=== PATIENT | male | born 1955 | race Caucasian/White ===

== ENCOUNTER 2016-06-01 07:44 | Day surgery (SDC) | payer OTHER ==
[~2016-06-01] VITALS: Ht 165.1 cm; Wt 79.2 kg
[2016-06-01 08:21] VITALS: Ht 165.1 cm; Wt 79.2 kg
[2016-06-01] MEDS ORDERED: [UNRECOGNIZED DRUG - OTHER] (08:26)
[2016-06-01 08:42] VITALS: BP 153/85; PULSE 66; RESP 20
[2016-06-01] MEDS ORDERED: MIDAZOLAM 1 MG/ML 2 ML INJ ONE ×2 (09:02)
[2016-06-01] MEDS ORDERED: FENTAnyl 50 MCG/ML VIAL ONE (09:02)
[2016-06-01 09:35] VITALS: BP 115/78; PULSE 53; RESP 18
--- NOTE | 2016-06-01 10:57 | GILP ---
DATE OF PROCEDURE: PROCEDURE: Colonoscopy. PREOPERATIVE DIAGNOSIS: Screening colonoscopy, a history of diverticulitis. Rule out colorectal ne oplasm. POSTOPERATIVE DIAGNOSES: Diverticulosis of the entire colon, a moderate degree. No colonic neoplas m noted. Minimal external hemorrhoids were noted. DESCRIPTION OF PROCEDURE: After informed written consent was obtained, the patient was asked to lie on the left lateral side. The patient was given 3 mg of Versed and 50 mcg of fentanyl as intraveno us anesthesia. When the patient became somnolent, the Olympus video colonoscope was introduced into the rectum and the scope was advanced all the way to the cecum. The entire colon was examined. A moderate degree of diverticulosis was noted. They are small in size. No evidence of bleeding noted. The rest of t he colon appeared normal. No neoplasm noted. The endoscope at this time was withdrawn. On the way out retroflexion was performed. No internal hemorrhoids were noted. When the scope was withdrawn, a minimal degree of external hemorrhoids were noted, and the procedure was terminated. PLAN: Recommend a repeat colonoscopy in 10 years. Dictated By: TISH COX/FLAVIO Conf#: [id number] DID#: [id number] CC: DAVIS LOU M.D.;*[facility]*
== END 2016-06-01 10:15 | disposition home or self-care (01) ==
LOC: GIL 07:44
PROVIDERS: ATTEND Internal Medicine Gastroenterology
DX: Z12.11 Encounter for screening for malignant neoplasm of colon (principal); K57.90 Diverticulosis of intestine, part unspecified, without perforation or abscess without bleeding; K64.4 Residual hemorrhoidal skin tags
CPT/HCPCS: 45378; J2250; J3010; Z7610